=== PATIENT | female | born 1970 | race Caucasian/White ===

== ENCOUNTER → 2016-05-22 | Outpatient (CLI) | payer OTHER ==
[~2016-05-22] MED LIST: IBUP-1050 PO
[2016-05-22 15:22] LABS: BASO % 0.2 %; BASO ABS # 0.02 K/uL (0-0.2); COMPLETE YES; EOS % 0.2 %; IG% 0.2 %; LYMPH % 8.3 %; LYMPH ABS # 1.02 K/uL (1.2-3.4); MEAN CORPUSCULAR HEMOGLOBIN 31.9 pg (25-34); MEAN CORPUSCULAR HGB CONC 36.3 g/dl (32-36); NEUT % 85.1 %; PLATELET COUNT 249 K/uL (130-400); RED BLOOD COUNT 4.32 M/uL (4.2-5.4); WHITE BLOOD COUNT 12.25 K/uL (4.8-10.8)
[2016-05-22 15:38] LABS: URINE APPEARANCE CLEAR (CLEAR); URINE BILIRUBIN NEG (NEG); URINE COLOR YELLOW; URINE NITRITE NEG (NEG); URINE SPECIFIC GRAVITY 1.006 (1.000-1.030); UROBILINOGEN NEG (NEG); ZZUR CULT IF INDIC CLEAN CATCH NO
[2016-05-22 15:39] LABS: MANUAL MICROSCOPIC REQUIRED? NO; REVIEW REQ? NO
[2016-05-22 15:41] LABS: ALT/SGPT 19 U/L (12-78); BLOOD UREA NITROGEN 8 mg/dl (7-18); BUN/CREATININE RATIO 12.6 (10-20); CALCIUM 8.8 mg/dl (8.5-10.1); CARBON DIOXIDE 26 mmol/L (21-32); CHLORIDE 104 mmol/L (98-107); CREATININE 0.62 mg/dl (0.60-1.20); GLUCOSE 87 mg/dl (70-99); POTASSIUM 3.6 mmol/L (3.5-5.1); SODIUM 139 mmol/L (136-145)
[2016-05-22 15:44] LABS: ALB/GLOB RATIO 1.1 (0.9-2); ALKALINE PHOSPHATASE 41 U/L (45-117); AST/SGOT 13 U/L (15-37)
== END | disposition home or self-care (01) ==
LOC: C.LAB1850 14:00
PROVIDERS: ATTEND Family Medicine
DX: R10.9 Unspecified abdominal pain (principal)

== ENCOUNTER 2016-05-23 15:48 | Emergency (ER) | payer OTHER ==
[~2016-05-23] VITALS: Ht 165.1 cm; Wt 52.2 kg
[2016-05-23 15:52] VITALS: TEMP 36.8; Ht 165.1 cm; Wt 52.2 kg
[2016-05-23] MEDS ORDERED: IBUP-1050 PO (16:14)
[2016-05-23 16:20] LABS: BASO % 0.3 %; BASO ABS # 0.02 K/uL (0-0.2); COMPLETE YES; EOS % 1.7 %; HEMATOCRIT 39.3 % (37-47); IG% 0.2 %; LYMPH % 22.4 %; LYMPH ABS # 1.35 K/uL (1.2-3.4); MEAN CELL VOLUME 87.9 fL (80-100); MEAN CORPUSCULAR HEMOGLOBIN 30.9 pg (25-34); MEAN CORPUSCULAR HGB CONC 35.1 g/dl (32-36); MEAN PLATELET VOLUME 8.6 fL (7.4-10.4); NEUT % 69.4 %; PLATELET COUNT 252 K/uL (130-400); RED BLOOD COUNT 4.47 M/uL (4.2-5.4); WHITE BLOOD COUNT 6.03 K/uL (4.8-10.8)
[2016-05-23 16:29] LABS: URINE APPEARANCE CLEAR (CLEAR); URINE BILIRUBIN NEG (NEG); URINE COLOR YELLOW; URINE NITRITE NEG (NEG); URINE PH 6.5 (4.5-7.5); URINE SPECIFIC GRAVITY 1.001 (1.000-1.030); UROBILINOGEN NEG (NEG); ZZUR CULT IF INDIC CLEAN CATCH NO
[2016-05-23 16:31] LABS: MANUAL MICROSCOPIC REQUIRED? NO; REVIEW REQ? NO
[2016-05-23 16:42] LABS: BUN/CREATININE RATIO 18.1 (10-20); CREATININE 0.64 mg/dl (0.60-1.20); POTASSIUM 3.4 mmol/L (3.5-5.1)
--- NOTE | 2016-05-23 16:42 | EMERGENCY ROOM VISIT NOTE ---
History Report prepared by Samra: Shantell Forrest Under the Supervision of: Dr. Dinh Son M.D. First contact with patient: 15:56 Chief Complaint: REFERRED BY DOCTOR Stated Complaint: GALLBLADDER ISSUES History of Present Illness The patient is a 45 year old female who presents to the Emergency Room with complaints of intermittent epigastric abdominal pain that began late Friday evening. The patient states that when her pain developed Friday she took Motrin, which alleviated her discomfort. She states that the pain returned Friday, but she states that she decided to not take the medication. The patient states that her pain persisted throughout the night so she consulted her PCP. She states that she had lab work done which revealed an elevated bilirubin and white blood cell count. The patient states that she was referred to the emergency department for her abnormal lab results. She states that she has had this discomfort in the past. The patient denies any history of acid reflux or heart burn. The patient states that last weekend she was working out when she felt something pull in her side. She states that she noticed a lump to the area. The patient states that she has a history of a previous kidney stone and a section. Source of History: patient Onset: Friday Position: abdomen (epigastric) Timing: intermittent Modifying Factors (Relieving): other (Motrin) Review of Systems See HPI for pertinent positives & negatives. A total of 10 systems reviewed and were otherwise negative. Past Medical & Surgical Medical Problems: (1) Kidney stone Surgical Problems: (1) H/O section Family History Kidney disease Kidney stones Social History Smoking Status: Never Smoker Smokeless Tobacco Use: No Alcohol Use: occasionally Marital Status: Housing Status: lives with significant other Occupation Status: employed Current/Historical Medications Scheduled Ibuprofen (Advil), 200-600 MG PO Q4H Allergies Coded Allergies: Meperidine (Unverified Allergy, Unknown, UNKNOWN, 05/23/16) Midazolam (Unverified Allergy, Unknown, UNKNOWN, 05/23/16) Physical Exam Vital Signs Date Time Temp Pulse Resp B/P Pulse Ox O2 Delivery O2 Flow Rate FiO2 05/23/16 15:52 36.8 86 20 125/83 99 Physical Exam GENERAL: Patient is in no distress, well appearing. HEENT: No acute trauma, normocephalic atraumatic, mucous membranes moist, no nasal congestion, no scleral icterus. NECK: No stridor, no adenopathy, no meningismus, trachea is midline. LUNGS: No dyspnea. Clear to auscultation and equal bilaterally. No wheeze, no rhonchi. HEART: Regular rate and rhythm. No murmurs, rubs, gallops appreciated. ABDOMEN: Soft, nontender, bowel sounds positive, no masses appreciated, no peritonitis. BACK: No midline tenderness, no CVA tenderness EXTREMITIES: Normal motion all extremities, no cyanosis, no edema. NEUROLOGIC: Alert and oriented, no acute motor or sensory deficits, no focal weakness, cranial nerves grossly intact. SKIN: No rash, no jaundice, no diaphoresis. Medical Decision & Procedures ER Provider Diagnostic Interpretation: X ray results and stated below per my interpretation and radiologist interpretation. Other radiology results and stated below per my review and radiologist interpretation: Right upper quadrant ultrasound GALLBLADDER-ABD LIMITED CLINICAL HISTORY: epigastric discomfort pain. Nausea. TECHNIQUE: Ultrasound COMPARISON STUDY: None FINDINGS: Gallbladder is normal. Common bile duct 5 mm. Liver is uniform. Pancreas and right kidney are unremarkable. IMPRESSION: Negative study Electronically signed by: Lee Hawkins M.D. 05/23/2016 4:48 PM Dictated Date/Time: 05/23/2016 4:47 PM Laboratory Results 05/23/16 16:00 Red Blood Count 4.47, Mean Corpuscular Volume 87.9, Mean Corpuscular Hemoglobin 30.9, Mean Corpuscular Hemoglobin Concent 35.1, Mean Platelet Volume 8.6, Neutrophils (%) (Auto) 69.4, Lymphocytes (%) (Auto) 22.4, Monocytes (%) (Auto) 6.0, Eosinophils (%) (Auto) 1.7, Basophils (%) (Auto) 0.3, Neutrophils # (Auto) 4.19, Lymphocytes # (Auto) 1.35, Monocytes # (Auto) 0.36, Eosinophils # (Auto) 0.10, Basophils # (Auto) 0.02 05/23/16 16:00 Test 05/23/16 16:00 05/23/16 16:13 White Blood Count 6.03 K/uL (4.8-10.8) Red Blood Count 4.47 M/uL (4.2-5.4) Hemoglobin 13.8 g/dL (12.0-16.0) Hematocrit 39.3 % (37-47) Mean Corpuscular Volume 87.9 fL (80-100) Mean Corpuscular Hemoglobin 30.9 pg (25-34) Mean Corpuscular Hemoglobin Concent 35.1 g/dl (32-36) Platelet Count 252 K/uL (130-400) Mean Platelet Volume 8.6 fL (7.4-10.4) Neutrophils (%) (Auto) 69.4 % Lymphocytes (%) (Auto) 22.4 % Monocytes (%) (Auto) 6.0 % Eosinophils (%) (Auto) 1.7 % Basophils (%) (Auto) 0.3 % Neutrophils # (Auto) 4.19 K/uL (1.4-6.5) Lymphocytes # (Auto) 1.35 K/uL (1.2-3.4) Monocytes # (Auto) 0.36 K/uL (0.11-0.59) Eosinophils # (Auto) 0.10 K/uL (0-0.5) Basophils # (Auto) 0.02 K/uL (0-0.2) RDW Standard Deviation 40.3 fL (36.4-46.3) RDW Coefficient of Variation 12.5 % (11.5-14.5) Immature Granulocyte % (Auto) 0.2 % Immature Granulocyte # (Auto) 0.01 K/uL (0.00-0.02) Anion Gap 12.0 mmol/L (3-11) Est Creatinine Clear Calc Drug Dose 89.5 ml/min Estimated GFR () 123.2 Estimated GFR (Non- 106.3 BUN/Creatinine Ratio 18.1 (10-20) Calcium Level 9.0 mg/dl (8.5-10.1) Total Bilirubin 0.6 mg/dl (0.2-1) Direct Bilirubin 0.1 mg/dl (0-0.2) Aspartate Amino Transf (AST/SGOT) 13 U/L (15-37) Alanine Aminotransferase (ALT/SGPT) 18 U/L (12-78) Alkaline Phosphatase 44 U/L (45-117) Total Protein 8.0 gm/dl (6.4-8.2) Albumin 4.2 gm/dl (3.4-5.0) Lipase 152 U/L (73-393) Urine Color YELLOW Urine Appearance CLEAR (CLEAR) Urine pH 6.5 (4.5-7.5) Urine Specific [place] 1.001 (1.000-1.030) Urine Protein NEG (NEG) Urine Glucose (UA) NEG (NEG) Urine Ketones NEG (NEG) Urine Occult Blood TRACE (NEG) Urine Nitrite NEG (NEG) Urine Bilirubin NEG (NEG) Urine Urobilinogen NEG (NEG) Urine Leukocyte Esterase NEG (NEG) Urine WBC (Auto) 0 /hpf (0-5) Urine RBC (Auto) 0-4 /hpf (0-4) Urine Hyaline Casts (Auto) 0 /lpf (0-5) Urine Epithelial Cells (Auto) 10-20 /lpf (0-5) Urine Bacteria (Auto) NEG (NEG) Urine Test NEG (NEG) Laboratory results as reviewed by me. ED Course 155: The patient was evaluated in room B4B. A complete history and physical exam was performed. 1655: I reevaluated the patient and she is resting comfortably and feeling much better. I discussed the exam findings with her and I discussed the treatment plan. She verbalized complete understanding and agreement. She is ready to go home and will follow up with her PCP. Medical Decision Differential: Cholecystitis, Gallbladder disfunction, Hepatic Disfunction, Gastritis/PUD, Pancreatitis, ACS, Aortic Pathology, amongst other pathologies entertained. Very pleasant 45 yr old female sent over by PCP for gallbladder evaluation as epigastric pain last few days associated with WBC of 12 on labs yesterday. No distress nor pain currently. US is negative for any acute findings and gb looks normal. WBC is normal today. Does have high stress and with symptoms occuring at night very well could be gastric in nature, just being made worse by nsaid use. Thus I have advised anti-acid use and follow up with PCP. Also describes what sounds like reduced ventral hernia after sit-ups. No evidence of hernia at this time. Discussed symptoms to monitor for and if hernia keeps happening follow up with PCP/Surgery. Stable and looks well. No distress and breathing comfortably. No cp nor cardiac symptoms. No shortness of breath nor chest pain. Impression Primary Impression: Epigastric abdominal pain Scribe Attestation The scribe's documentation has been prepared under my direction and personally reviewed by me in its entirety. I confirm that the note above accurately reflects all work, treatment, procedures, and medical decision making performed by me. Departure Information Dispostion Home / Self-Care Referrals Evan Hidalgo M.D. (PCP) Forms HOME CARE DOCUMENTATION FORM, IMPORTANT VISIT INFORMATION, WORK / SCHOOL INSTRUCTIONS Patient Instructions ED Epigastric Pain YARI My [facility] [address]
--- NOTE | 2016-05-23 16:49 | DIAGNOSTIC IMAGING REPORT ---
Right upper quadrant ultrasound GALLBLADDER-ABD LIMITED CLINICAL HISTORY: epigastric discomfort pain. Nausea. TECHNIQUE: Ultrasound COMPARISON STUDY: None FINDINGS: Gallbladder is normal. Common bile duct 5 mm. Liver is uniform. Pancreas and right kidney are unremarkable. IMPRESSION: Negative study Electronically signed by: Lee Hawkins M.D. 05/23/2016 4:48 PM Dictated Date/Time: 05/23/2016 4:47 PM
[2016-05-23] MEDS ORDERED: ONDANSETRON INJ 2 MG/ML 2 ML VIAL ONE (17:28)
[2016-05-23 17:29] VITALS: BP 115/60; PULSE 70; O2SAT 98
== END 2016-05-23 17:31 | disposition home or self-care (01) ==
LOC: C.EDB 15:49
DX: R10.13 Epigastric pain (principal); Z87.442 Personal history of urinary calculi; Z84.1 Family history of disorders of kidney and ureter

== ENCOUNTER → 2016-07-25 | Outpatient (CLI) | payer OTHER ==
[2016-07-29 23:54] LABS: CHLAMYDIA TRACH RNA*** NOT DETECTED (NOT DETECTED); GC (NEIS GONORRHOEAE)RNA** NOT DETECTED (NOT DETECTED)
== END | disposition home or self-care (01) ==
LOC: C.LABBFT 11:41
PROVIDERS: ATTEND Physician Assistant
DX: Z11.3 Encounter for screening for infections with a predominantly sexual mode of transmission (principal)

== ENCOUNTER → 2016-08-14 | Outpatient (CLI) | payer OTHER | END | disposition home or self-care (01) | LOC: C.LABSPEC 17:13 | PROVIDERS: ATTEND Urology | DX: R10.9 Unspecified abdominal pain (principal); R31.29 Other microscopic hematuria ==

== ENCOUNTER → 2016-10-02 | Outpatient (CLI) | payer OTHER | END | disposition home or self-care (01) | LOC: C.PAPS 12:13 | PROVIDERS: ATTEND Obstetrics & Gynecology | DX: Z12.4 Encounter for screening for malignant neoplasm of cervix (principal) ==

== ENCOUNTER → 2017-08-12 | Outpatient (CLI) | payer OTHER ==
--- NOTE | 2017-08-13 15:04 | MAMMOGRAPHY REPORT ---
BILATERAL DIGITAL SCREENING MAMMOGRAM TOMOSYNTHESIS WITH CAD: 08/12/2017 CLINICAL HISTORY: Routine screening. Patient has no complaints. TECHNIQUE: Breast tomosynthesis in addition to standard 2D mammography was performed. Current study was also evaluated with a Computer Aided Detection (CAD) system. COMPARISON: Comparison is made to exams dated: 08/08/2016 mammogram, 08/04/2015 mammogram, 04/25/2014 ma mmogram, 04/23/2013 mammogram, 02/28/2012 mammogram, and 10/03/2010 mammogram - [facility] enter. BREAST COMPOSITION: The tissue of both breasts is extremely dense, which lowers the sensitivity of m ammography. FINDINGS: There are possibly increasing microcalcifications in the central and 12:00 right breast, f or which additional spot magnification views are recommended. There are generally stable microcalcifications in the left breast. No obvious new masses, asymmetrie s or areas of distortion are identified. Possibly increasing microcalcifications IMPRESSION: ACR BI-RADS CATEGORY 0: INCOMPLETE EVALUATION: NEED ADDITIONAL IMAGING EVALUATION The possibly increasing microcalcifications in the right breast need additional evaluation. The patient will be called to schedule an appointment. Approximately 10% of breast cancers are not detected with mammography. A negative mammographic report should not delay biopsy if a clinically suggestive mass is present. Uma Martin M.D. ay/:08/12/2017 16:04:08 Etl Programmer: Bethanie RAMIREZ)(Renée), [facility] letter sent: Addl Imaging 0 BI-RADS Code: ACR BI-RADS Category 0: Incomplete Evaluation: Need Additional Imaging Evaluation
== END | disposition home or self-care (01) ==
LOC: C.MAMM 08:14
PROVIDERS: ATTEND Obstetrics & Gynecology
DX: Z12.31 Encounter for screening mammogram for malignant neoplasm of breast (principal); R92.0 Mammographic microcalcification found on diagnostic imaging of breast

== ENCOUNTER → 2017-08-26 | Outpatient (CLI) | payer OTHER ==
--- NOTE | 2017-08-27 14:23 | MAMMOGRAPHY REPORT ---
UNILATERAL RIGHT DIGITAL DIAGNOSTIC MAMMOGRAM: 08/26/2017 CLINICAL HISTORY: 46-year-old woman called back from screening mammography for possible increasing ri ght breast microcalcifications. TECHNIQUE: Spot magnification right CC and ML views were obtained. COMPARISON: Comparison is made to exams dated: 08/12/2017 mammogram, 08/08/2016 mammogram, 08/04/2015 ann mogram, 04/25/2014 mammogram, 09/09/2013 aspiration, and 09/09/2013 ultrasound - [facility] [address]. BREAST COMPOSITION: The tissue of the right breast is heterogeneously dense, which may obscure small masses. FINDINGS: The spot magnification cc view of the right breast demonstrates a grouping versus several g roupings of microcalcifications in the posterior breast, slightly lateral to the posterior nipple yaquelin e. These calcifications are thought to project in the 11:00 to 12:00 axis based on the spot magnific ation ML view. None demonstrate layering to confirm benign milk of calcium. Also seen on the spot m agnification ML view are other groupings of faint punctate and amorphous microcalcifications along th e posterior nipple line in the middle one third of the breast and in the superior, posterior breast p rojecting over the pectoralis muscle. The calcifications in the 12:00 axis measure 11 mm in maximum dimension, and when comparing back to prior spot magnification views obtained on 04/05/2011, this emile uping appears larger, therefore indeterminate. Definitive characterization with a stereotactic guide d biopsy is recommended. It should be noted that the other groupings of calcifications identified on the spot magnification ML view are faintly visualized on the prior 2010 exam and with that length of stability are most likely benign. IMPRESSION: ACR BI-RADS CATEGORY 4: SUSPICIOUS There are possibly increasing grouped/clustered microcalcifications in the 11:00 to 12:00 posterior r ight breast, measuring 11 mm in maximum dimension, for which a stereotactic guided biopsy is recommen ded. Pending benign pathology results, could follow the other clusters of calcifications noted throu ghout the superior right breast in 6 months to ensure stability. These results and recommendations were discussed with the patient at the time of the exam. She tenta tively scheduled the biopsy via telephone soon after leaving the department. Approximately 10% of breast cancers are not detected with mammography. A negative mammographic report should not delay biopsy if a clinically suggestive mass is present. Uma friedman/:08/26/2017 15:37:12 Database Programmer: Janet ARGUETA(Kelsi)(M), [facility] letter sent: Abnormal 4/5 BI-RADS Code: ACR BI-RADS Category 4: Suspicious
== END | disposition home or self-care (01) ==
LOC: C.MAMM 09:06
PROVIDERS: ATTEND Obstetrics & Gynecology
DX: R92.0 Mammographic microcalcification found on diagnostic imaging of breast (principal)

== ENCOUNTER → 2017-11-12 | Outpatient (CLI) | payer OTHER ==
--- NOTE | 2017-11-12 09:50 | DIAGNOSTIC IMAGING REPORT ---
HEAD WITHOUT CONTRAST (CT) CLINICAL HISTORY: 46 years-old Female presenting with S06.0X9A Concussion tomorrow early or [id number]. TECHNIQUE: Multidetector CT imaging of the head was performed without the use of intravenous contrast. IV contrast: None. A dose lowering technique was used consistent with the principles of ALARA (as low as reasonably achievable). COMPARISON: Brain MR from 2014. CT DOSE (mGy.cm): The estimated cumulative dose is 537.48 mGy.cm. 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 Ventricles and sulci normal in size. Brain parenchyma normal in appearance with preserved ma-white differentiation. No mass effect or midline shift. No hemorrhage or acute territorial infarct. No extra-axial fluid collection. Paranasal sinuses and mastoid air cells clear. Calvarium intact. IMPRESSION: 1. No acute intracranial abnormality. Electronically signed by: Liang Miller M.D. 11/12/2017 9:49 AM Dictated Date/Time: 11/12/2017 9:44 AM
== END | disposition home or self-care (01) ==
LOC: C.CTS 09:30
PROVIDERS: ATTEND Internal Medicine
DX: S06.0X9A Concussion with loss of consciousness of unspecified duration, initial encounter (principal); X58.XXXA Exposure to other specified factors, initial encounter